=== PATIENT | male | born 2005 | race African-American/Black ===

== ENCOUNTER 2024-09-27 16:30 | Emergency (ER) | payer MEDICAID, OTHER ==
[~2024-09-27] VITALS: Ht 182.9 cm; Wt 58.1 kg
[2024-09-27 18:42] VITALS: BP 108/61; PULSE 61; RESP 16; TEMP 98.1; O2SAT 97
[2024-09-27] MEDS ORDERED: IBUP-1456 PO (19:40)
[2024-09-27] MEDS ORDERED: AMOX875T4 PO (19:40)
--- NOTE | 2024-09-27 19:40 | ED.PDOC ---
Eye-HPI HPI Comments 19-year-old male presents to ER with complaints of toothache x2 days. Patient reports he started experiencing left upper toothache 2 days ago with associated left-sided facial swelling x1 day. Rates his current left upper toothache pain a 8/10 without radiation. States that he took Motrin for his pain with slight relief. Patient presets to ER ambulatory on arrival, with steady gait, in no distress and notes he has not seen a dentist for five years but reports that he made an appointment to see a dentist tomorrow. Denies fever, body aches, chills or any further symptoms/complaints Chief Complaint: Face pain Time Seen by MD: 18:04 Primary Care Provider: none Reviewed Notes: Nurses Notes, Medications, Allergies Allergies: Coded Allergies: NO KNOWN ALLERGIES (Unverified , 10/15/11) Home Meds Active Scripts Ibuprofen (Ibuprofen) 800 Mg Tab, 1 TAB PO TID PRN, #30 TAB 0 Refills Prov:AMADEO CRUZ 09/27/24 Amoxicillin & Pot Clavulanate (Amoxicillin/Potassium Cla) 875 Mg Tab, 1 TAB PO BID for 7 Days, #14 TAB 0 Refills Prov:AMADEO CRUZ 09/27/24 Information Source: Patient Mode of Arrival: Ambulatory Past Medical History Immunizations: Current Medical History: Denies Family History Family History: Unknown Social History Smoking: Non-Smoker Alcohol: Denies ETOH Use Drugs: Denies Drug Use Lives In: Home Constitutional: denies: chills, diaphoresis, fatigue, fever, malaise, sweats, weakness, others EENTM: reports: others (As stated in HPI) Respiratory: denies: cough, hemoptysis, orthopnea, SOB at rest, shortness of breath, SOB with excertion, stridor, wheezing, others Cardiovascular: denies: chest pain, dizzy spells, diaphoresis, Dyspnea on exertion, edema, irregular heart beat, left arm pain, lightheadedness, palpitations, PND, syncope, others Gastrointestinal: denies: abdomen distended, abdominal pain, blood streaked bowels, constipated, diarrhea, dysphagia, difficulty swallowing, hematemesis, melena, nausea, poor appetite, poor fluid intake, rectal bleeding, rectal pain, vomiting, others Genitourinary: denies: burning, dysuria, flank pain, frequency, hematuria, incontinence, penile discharge, penile sore, pain, testicle pain, testicle swelling, urgency, others Neurological: denies: dizziness, fainting, headache, left sided numbness, left sided weakness, numbness, paresthesia, pre-existing deficit, right sided numbness, right sided weakness, seizure, speech problems, tingling, tremors, weakness, others Musculoskeletal: denies: back pain, gout, joint pain, joint swelling, muscle pain, muscle stiffness, neck pain, others Integumetry: reports: others (As stated in HPI) Allergic/Immunocompromised: denies: Difficulty Healing, Frequent Infections, Hives, Itching, others Hematologic/Lymphatic: denies: anemia, blood clots, easy bleeding, easy bruising, swollen glands, others Endocrine: denies: excessive hunger, excessive sweating, excessive thirst, excessive urination, flushing, intolerance to cold, intolerance to heat, unexplained weight gain, unexplained weight loss, others Psychiatric: denies: anxiety, bipolar disorder, depression, hopeless, panic disorder, schizophrenia, sleepless, suicidal, others Physical Exam General Appearance: No Apparent Distress HEENT: Normal ENT Inspection, PERRL/EOMI, Pharynx Normal, TMs Normal, Other (Mild swelling/erythema noted surrounding gums of left upper 2nd molar tooth without bleeding/drainage. Minimal left-sided facial swelling also noted. No further skin changes appreciated) Neck: Full Range of Motion, Non-Tender, Normal Respiratory: Chest Non-Tender, Lungs Clear, No Accessory Muscle Use, No Respiratory Distress, Normal Breath Sounds Cardiovascular: No Murmur, No Gallop, Regular Rate/Rhythm Breast Exam: Deferred Gastrointestinal: NOT DONE Genitalia: Deferred Pelvic: Deferred Rectal: Deferred Extremities: Normal capillary refill, Normal range of motion Neurologic: Alert, ward nurse II-XII nml as Tested, No Motor Deficits, Normal Affect, Normal Mood, No Sensory Deficits Cerebellar Function: Normal Reflexes: Normal Skin: Dry, Normal Color, Warm Lymphatic: No Adenopathy Was a procedure done? Was a procedure done?: No Sedation Sedation?: No EENT DIFF Eye: N/A Mouth: Thrush, Other (Guillaume's angina, dental abscess, fractured tooth) X-Ray, Labs, Meds, VS Vital Signs Date Time Temp Pulse Resp B/P (MAP) Pulse Ox O2 Delivery O2 Flow Rate FiO2 5/19/25 18:42 98.1 66 16 108/61 (77) 98 98.1 09/27/24 18:42 61 16 97 Room Air 09/27/24 16:58 98.6 79 17 111/76 (88) 98 98.6 Rocephin 1 g IM ordered Patient in no distress during ER visit/prior to discharge Advised to follow up with PCP and dentist in 1-2 days Patient verbalized understanding and agreeable with current plan of care Advised to return to ER immediately if symptoms worsen Time of 1ST Reevaluation: 19:12 Reevaluation 1ST: N/A Patient Education/Counseling: Diagnosis, Treatment, Prognosis, Need For Follow Up Family Education/Counseling: No Family Present Departure 1 Departure Time of Disposition: 19:32 Impression: Primary Impression: Dental infection Disposition: 01 HOME / SELF CARE / HOMELESS Condition: Stable e-Prescriptions Ibuprofen (Ibuprofen) 800 Mg Tab 1 TAB PO TID PRN, #30 TAB 0 Refills Prov: AMADEO CRUZ 09/27/24 Amoxicillin & Pot Clavulanate (Amoxicillin/Potassium Cla) 875 Mg Tab 1 TAB PO BID for 7 Days, #14 TAB 0 Refills Prov: AMADEO CRUZ 09/27/24 Discharged With: Self Critical Care Note Critical Care Time?: No Stability Stability form required: AMADEO Rivera September 27, 2024 19:40
[2024-09-27] MEDS: cefTRIAXone SOD 1,000 MG VL IM ONE (19:49)
[2024-09-27] MEDS: LIDOCAINE 1% HCL (LOCAL ANESTH.) INJ 20ML MDV IJ ONE (19:49)
== END 2024-09-27 20:00 | disposition home or self-care (01) ==
LOC: ER 16:30
DX: K04.7 Periapical abscess without sinus (principal)
CPT/HCPCS: 96372; 99283; J0696; J2003